=== PATIENT | male | born 1950 | race Caucasian/White ===

== ENCOUNTER 2020-03-06 16:31 | Emergency (ER) | payer MEDICARE, SELFPAY ==
[2020-03-06 17:50] VITALS: BP 142/83; PULSE 89; RESP 18; TEMP 36.6; O2SAT 99; BMI 31.1
[2020-03-06 19:50] VITALS: BP 128/79; PULSE 99; RESP 16; O2SAT 97
--- NOTE | 2020-03-06 19:52 | ED_ITS ---
HPI - Extremity Problem General Chief complaint: Extremity Problem Stated complaint: HIP PAIN Time Seen by Provider: 03/06/20 19:48 Source: patient Mode of arrival: ambulatory History of Present Illness HPI Narrative: 69-year-old male with a past medical history of diabetes, hyperlipidemia, hypertension, skin cancer, presenting to the ED complaining of acute on chronic left foot pain x2 days. Admits to symptoms x years, however worsening over the past couple days, denies recent injury/trauma or falls. Takes gabapentin 3 times daily with minimal relief. Describes pain as twitching/spikes that radiate down foot. Denies fever, chills, numbness/tingling, weakness Complaint: extremity pain Related Data Previous Rx's Medication Instructions Recorded cyclobenzaprine 5 mg PO Q8H PRN 5 Days #14 tab 03/06/20 tramadol 50 mg PO Q6H PRN 3 Days #9 tab 03/06/20 Allergies Allergy/AdvReac Type Severity Reaction Status Date / Time No Known Allergies Allergy Unverified 12/10/19 15:58 [No Known Allergies*] Review of Systems Review of Systems: Constitutional: No Weight loss, No Fever, No Chills Cardiovascular: No Chest Pain, No SOB Respiratory: No Cough Gastrointestinal: No Nausea, No Vomiting,No Abdominal pain Genitourinary:, No Dysuria, + Urinary Frequency, No Urgency, No Flank Pain Musculoskeletal: + joint pain, No Myalgias, +chronic LE swelling Skin: No Skin Lesions, No rash Neuro: No Weakness, No Numbness, + Paresthesias Yes all other systems are reviewed and are negative [facility] Past Medical History Attestation statement: The following information was validated with the patient. Medical History (Updated 03/06/20 @ 20:07 by TEE Burris) Diabetes HLD (hyperlipidemia) HTN (hypertension) Skin cancer Social History Social History Smoking Status: Never smoker Smoked in Last 30 Days: No Use of substances other than those prescribed or required for medical reasons: No Advance Directives: No Advance Directives Information Provided: Yes Physical Exam Vital Signs: Vital Signs: Last Vital Signs Temp 98 F 03/06/20 17:50 Pulse 99 03/06/20 19:50 Resp 16 03/06/20 19:50 BP 128/79 03/06/20 19:50 Pulse Ox 97 03/06/20 19:50 Body Mass Index 31.1 Const: General: cooperative Orientation/consciousness: patient oriented x3 Limitations: no limitations HENMT: Head: Yes normal to inspection Ears: hearing grossly normal bilaterally General nose exam: Normal external nose present Face and sinus: Yes normal facial exam Eyes: General: appearance normal, both eyes and all related structures EOM: EOMs intact bilaterally Neck: Neck: Yes normal visual inspection and Yes no meningeal signs Resp: Effort & Inspection: normal respiratory effort Cardio: Rate: regular rate Peripheral pulses: dorsalis pedis present GI: Inspection: Yes normal to inspection Palpation (GI): Soft to palpation, nontender, no guarding and not rigid Skin: Rashes: no rashes Wounds: no wounds Neuro: General: patient oriented x3 and no meningeal signs Gait exam (Neuro): Normal gait present Extrem: Other: + bilateral LE edema (chronic per patient). Left foot/ankle without deformity, nontender to palpation, no crepitus, NV intact Course Course Course Narrative: * POC 289 MDM - Extremity (Nontraumatic) MDM Narrative Medical decision making narrative: On exam VS, NAD/well-appearing. Likely acute on chronic neuropathy/paresthesias. Low concern for acute fracture/dislocation. Will check POC Discharge Plan Discharge Clinical Impression: Foot pain, left Patient Disposition: Home, Self-Care Instructions: Paresthesia (ED) Additional Instructions: Tramadol as an opiate pain medication, take only when pain is severe for the next 3 days. Flexeril as a muscle relaxer, take at night as it makes you drowsy, do not drive, drink alcohol, or operate machinery while taking it. Follow up with her primary care doctor. If symptoms persist or worsen, fever, or unable to walk, have weakness, or numbness return to the ED Tramadol jeremías analg?sico opi?manager account management, t?gutierrez solo cuando el dolor sea intenso francine los pr?ximos 3 d?as. Flexeril jeremías relajante muscular, t?gutierrez por la noche ya que le produce somnolencia, no conduzca, no jacqueline alcohol ni utilice maquinaria mientras lo vishal. Ray un seguimiento con wright m?dico de atenci?n primaria. Si los s?ntomas persisten o empeoran, tiene fiebre o no puede caminar, tiene debilidad o entumecimiento, regrese al servicio de urgencias Prescriptions: New tramadol 50 mg tablet 50 mg PO Q6H PRN (Reason: pain) 3 Days Qty: 9 RF: 0 cyclobenzaprine 5 mg tablet 5 mg PO Q8H PRN (Reason: pain (scale score 7-10)) 5 Days Qty: 14 RF: 0 Referrals: Physician,Unknown [Primary Care Provider] - 2 days (Your primary care doctor) Print Language: Kazakh
[2020-03-06 20:25] LABS: Glucose, Whole Blood 289 mg/dL (60-115)
== END 2020-03-06 21:16 | disposition home or self-care (01) ==
PROVIDERS: Emergency Provider Internal Medicine
DX: M79.672 Pain in left foot (principal); I10 Essential (primary) hypertension; E11.9 Type 2 diabetes mellitus without complications; Z79.899 Other long term (current) drug therapy
CPT/HCPCS: 82947; 99283; 99284

== ENCOUNTER 2020-04-12 06:10 | Emergency (ER) | payer MEDICARE, SELFPAY ==
--- NOTE | 2020-04-12 07:00 | ED.EXTPRO ---
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 Patient presents with foot pain from neuropathy. Both feet, no redness, increasing swelling to his feet over months Complaint: extremity pain Onset (ago): year(s) Pain Consistency: intermittent Location: left and right Quality: burning Related Data Previous Rx's Medication Instructions Recorded cyclobenzaprine 5 mg PO Q8H PRN 5 Days #14 tab 03/06/20 tramadol 50 mg PO Q6H PRN 3 Days #9 tab 03/06/20 Allergies Allergy/AdvReac Type Severity Reaction Status Date / Time No Known Allergies Allergy Unverified 12/10/19 15:58 [No Known Allergies*] Review of Systems Constitutional: Constitutional: Reports no additional constitutional complaints Eyes: Eyes: Reports no additional eye complaints ENT: Denies dizziness Cardiovascular: Cardiovascular: Reports no additional cardiovascular complaints Respiratory: Respiratory: Reports as per HPI Gastrointestinal: Gastrointestinal: Reports no additional gastrointestinal complaints Musculoskeletal: Musculoskeletal: Reports no additional musculoskeletal complaints Integumentary/Breasts: Skin/Breast: Denies rash Neurologic: Reports system reviewed and no additional complaints, except as documented, Denies dizziness and Denies Sensory deficit (Neuro) Psychiatric: Psychiatric: Denies anxiety [facility], [facility] Past Medical History Medical History Diabetes HLD (hyperlipidemia) HTN (hypertension) Skin cancer Social History Social History Smoking Status: Never smoker Advance Directives: No Advance Directives Information Provided: No Physical Exam Vital Signs: Vital Signs: Last Vital Signs Temp 98 F 04/12/20 07:29 Pulse 92 04/12/20 07:29 Resp 16 04/12/20 07:29 BP 111/70 04/12/20 07:29 Pulse Ox 97 04/12/20 07:29 Body Mass Index 33.8 Const: General: healthy appearing Nutritional Appearance: average body habitus Orientation/consciousness: oriented to person and patient oriented x3 Limitations: no limitations HENMT: Other: very hard of hearing Head: Yes normal to inspection Ears: external ears normal General nose exam: Normal external nose present Mouth: Normal oral and palatal mucosa present and oropharynx normal Throat: Yes posterior oropharynx normal Eyes: General: appearance normal, both eyes and all related structures Neck: Other: supple Neck: Yes normal visual inspection Chest: Chest palpation & inspection: normal inspection of the chest Resp: Auscultation: clear to auscultation bilaterally Cardio: Jugular venous distension: no JVD Rate: regular rate Rhythm: regular rhythm Heart sounds: S1 normal heart sound present and S2 normal heart sound present GI: Inspection: Yes normal to inspection Palpation (GI): Soft to palpation, nontender and No hepatosplenomegaly present Auscultation: normal bowel sounds : General: Yes no CVA tenderness Back/Spine/Pelvis: Back: no CVA tenderness Skin: General skin exam: no rashes or lesions noted Neuro: General: oriented to person and patient oriented x3 Cranial nerves: Yes CN's II-XII intact bilaterally Motor exam (neuro): 5/5 motor strength present throughout Sensory Exam: No Sensory deficit (Neuro) Extrem: Other: no erythema, bilateral edema 1+ and good DP pulses General: Yes normal to inspection Psych: Appearance: grossly normal Course Course Course Narrative: glucose is not high will dc home with follow up, will treat for neuropathy MDM - Extremity (Nontraumatic) MDM Narrative Medical decision making narrative: neuropathy, gout, vascular insufficiency all were considered. Patient with good pulses, no evidence of gout or cellulitis. Most likely neuropathy Lab Data Labs: Lab Results 04/12/20 Range/Units 08:33 POC Glucose 101 (60-115) mg/dL Discharge Plan Discharge Clinical Impression: Neuropathy Patient Disposition: Home, Self-Care Instructions: Diabetic Peripheral Neuropathy (ED) Prescriptions: No Action tramadol 50 mg tablet 50 mg PO Q6H PRN (Reason: pain) 3 Days Qty: 9 RF: 0 cyclobenzaprine 5 mg tablet 5 mg PO Q8H PRN (Reason: pain (scale score 7-10)) 5 Days Qty: 14 RF: 0 Referrals: Physician,Unknown [Primary Care Provider] - 2 days
[2020-04-12 07:29] VITALS: BP 111/70; PULSE 92; RESP 16; TEMP 36.6; O2SAT 97; BMI 33.8
[2020-04-12] MEDS: Gabapentin 300 MG CAPSULE PO (08:08)
[2020-04-12 08:37] LABS: Glucose, Whole Blood 101 mg/dL (60-115)
== END 2020-04-12 09:25 | disposition home or self-care (01) ==
PROVIDERS: Emergency Provider Emergency Medicine
DX: G62.9 Polyneuropathy, unspecified (principal); E11.9 Type 2 diabetes mellitus without complications; I10 Essential (primary) hypertension; Z85.828 Personal history of other malignant neoplasm of skin
CPT/HCPCS: 82947; 99282

== ENCOUNTER 2021-03-25 19:39 | Emergency (ER) | payer MEDICARE, SELFPAY ==
--- NOTE | ~2021-03-25 | XR_ITS ---
EXAMINATION: XR CHEST CLINICAL INFORMATION: Congestion COMPARISON: 06/06/2018 TECHNIQUE: Frontal view of the chest was obtained. FINDINGS: Low lung volumes. No consolidation, pneumothorax, or pleural effusion. Mild dependent atelectasis. Cardiac and mediastinal contours are normal. 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 XR/XR chest 1V IMPRESSION: Low lung volumes with mild dependent atelectasis. No acute pulmonary findings
[2021-03-25 20:29] LABS: COVID-19 Test Negative (Negative)
[2021-03-25 21:01] VITALS: BP 169/92; PULSE 113; RESP 16; TEMP 37; O2SAT 96; BMI 32.9
--- NOTE | 2021-03-25 21:27 | ED.URI ---
HPI - URI/Sore Throat General Chief Complaint: Upper Respiratory Symptoms Stated Complaint: fever,congestion,cough Time Seen by Provider: 03/25/21 21:27 Source: patient Mode of arrival: ambulatory Limitations: no limitations History of Present Illness HPI Narrative: Patient coughing for last 2 weeks with mucoid phlegm patient already been vaccinated against COVID no fever no chills no chest pain Related Data Previous Rx's Medication Instructions Recorded cyclobenzaprine 5 mg tablet 5 mg PO Q8H PRN 5 Days #14 tab 03/06/20 tramadol 50 mg tablet 50 mg PO Q6H PRN 3 Days #9 tab 03/06/20 amoxicillin 875 mg-potassium 1 tab PO BID #20 tab 03/25/21 clavulanate 125 mg tablet (Augmentin) benzonatate 200 mg capsule 200 mg PO TID PRN #30 cap 03/25/21 doxycycline hyclate 100 mg tablet 100 mg PO BID #20 tab 03/25/21 Allergies Allergy/AdvReac Type Severity Reaction Status Date / Time No Known Allergies Allergy Unverified 12/10/19 15:58 [No Known Allergies*] Review of Systems Review of Systems: Yes all other systems are reviewed and are negative [facility] Past Medical History Medical History Diabetes HLD (hyperlipidemia) HTN (hypertension) Skin cancer Social History Social History Advance Directives: No Physical Exam Vital Signs: Vital Signs: Last Vital Signs Temp 98.6 F 03/25/21 21:01 Pulse 113 H 03/25/21 21:01 Resp 16 03/25/21 21:01 BP 169/92 H 03/25/21 21:01 Pulse Ox 96 03/25/21 21:01 BMI result Body Mass Index 32.9 Appearance: Alert. Oriented X3. No acute distress. ENT: Pharynx normal. Oral Mucosa moist Neck: Normal inspection. Neck supple. CVS: Normal heart rate and rhythm. Pulses normal. Respiratory: No respiratory distress. Equal air entry bilateral, no wheezing/rales/rhonchi Abdomen: Soft and nontender. Bowel sounds are present, Skin: Skin warm and dry. Normal skin color. Normal skin turgor. Extremities: No lower extremity edema. No calf tenderness Neuro: Oriented X 3. MDM - URI/Sore Throat MDM Narrative Medical decision making narrative: Patient's bronchitis chest x-ray negative for any acute infiltrate discharge patient home on Augmentin and doxycycline Lab Data Attestation: I reviewed the patient's lab results. Labs: Lab Results 03/25/21 Range/Units 20:01 COVID-19 ([facility]OR[facility]ZA) Negative (Negative) COVID-19 Clin Com See Note Discharge Plan Discharge Clinical Impression: Bronchitis Patient Disposition: Home, Self-Care Instructions: Acute Bronchitis (ED) Additional Instructions: Take medicine as advised Follow with PCP if not better [place] los medicamentos seg?n lo recomendado Siga con wright PCP si no mejora Prescriptions: New benzonatate 200 mg capsule 200 mg PO TID PRN (Reason: cough) Qty: 30 RF: 0 doxycycline hyclate 100 mg tablet 100 mg PO BID Qty: 20 RF: 0 amoxicillin-pot clavulanate [Augmentin] 875-125 mg tablet 1 tab PO BID Qty: 20 RF: 0 No Action tramadol 50 mg tablet 50 mg PO Q6H PRN (Reason: pain) 3 Days Qty: 9 RF: 0 cyclobenzaprine 5 mg tablet 5 mg PO Q8H PRN (Reason: pain (scale score 7-10)) 5 Days Qty: 14 RF: 0 Print Language: Sri Lankan
[2021-03-25] MEDS: Benzonatate 100 MG CAPSULE 200 MG PO (22:07)
[2021-03-25] MEDS: Amoxicillin/Potassium Clav 875 MG TABLET PO (22:07)
== END 2021-03-25 22:10 | disposition home or self-care (01) ==
PROVIDERS: Emergency Provider Internal Medicine; PCP Internal Medicine
DX: J40 Bronchitis, not specified as acute or chronic (principal); R05.9 Cough, unspecified; R50.9 Fever, unspecified; Z20.822 Contact with and (suspected) exposure to COVID-19; Z79.899 Other long term (current) drug therapy
CPT/HCPCS: 36415; 71045; 87635; 99283

== ENCOUNTER 2022-02-18 18:12 | Emergency (ER) | payer MEDICARE, SELFPAY ==
--- NOTE | 2022-02-18 19:05 | ED_ITS ---
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 Patient states that he has been on augmentin for the last week and the sinus infection hasn't gotten better. Patient denies any dizziness, lightheadedness, abdominal pain, nausea, vomiting, fever, chills, blurry vision, double vision, loss of vision, chest pain, difficulty breathing, shortness of breath, back pain, night sweats, pain with urination, increased urinary frequency, increased urinary urgency, blood in his urine or stool, syncope or a near syncopal episode, recent trauma or falls, bowel incontinence, bladder incontinence, bowel retention, bladder retention, or any other complaints at this time. Onset (ago): week(s) (1) Location: face Radiation: non-radiation Severity: mild Severity scale (1-10): 3 Quality: dull Pain Consistency: constant Relieving factors: none Exacerbating factors: none Associated symptoms: denies other symptoms Treatments prior to arrival: none Related Data Previous Rx's Medication Instructions Recorded cyclobenzaprine 5 mg tablet 5 mg PO Q8H PRN pain (scale score 03/06/20 7-10) 5 days #14 tabs tramadol 50 mg tablet 50 mg PO Q6H PRN pain 3 days #9 03/06/20 tabs amoxicillin 875 mg-potassium 1 tab PO BID #20 tabs 03/25/21 clavulanate 125 mg tablet (Augmentin) benzonatate 200 mg capsule 200 mg PO TID PRN cough #30 caps 03/25/21 doxycycline hyclate 100 mg tablet 100 mg PO BID #20 tabs 03/25/21 acetaminophen 325 mg tablet 650 mg PO Q6H PRN fever #30 tabs 02/18/22 (Tylenol) doxycycline hyclate 100 mg tablet 100 mg PO BID 7 days #14 tabs 02/18/22 Allergies Allergy/AdvReac Type Severity Reaction Status Date / Time No Known Allergies Allergy Unverified 09/17/20 15:58 [No Known Allergies*] Review of Systems Constitutional: Constitutional: Reports no additional constitutional complaints, Denies chills, Denies fever(s) and Denies night sweats Eyes: Eyes: Reports no additional eye complaints, Denies blurry vision, Denies change in vision, Denies diplopia, Denies eye discharge, Denies loss of vision and Denies eye pain ENT: Denies dizziness and Reports sinus pressure Cardiovascular: Cardiovascular: Reports no additional cardiovascular complaints, Denies chest pain, Denies lightheadedness, Denies Loss of Consciousness and Denies dyspnea Respiratory: Respiratory: Reports no additional respiratory complaints and Denies dyspnea Gastrointestinal: Gastrointestinal: Reports no additional gastrointestinal complaints, Denies abdominal pain, Denies melena, Denies hematochezia, Denies change in bowel habits and Denies change in stool character Genitourinary: Genitourinary: Reports no additional male genitourinary complaints, Denies hematuria, Denies oliguria, Denies difficulty urinating, Denies dysuria, Denies urinary frequency, Denies urinary hesitancy, Denies urinary incontinence and Denies urinary urgency Musculoskeletal: Musculoskeletal: Reports no additional musculoskeletal complaints, Denies numbness and Denies tingling Neurologic: Denies dizziness, Denies loss of vision, Denies numbness and Denies tingling Psychiatric: Psychiatric: Reports no additional psychiatric complaints Endocrine: Endocrine: Reports no additional endocrine complaints Hematologic/Lymphatic: Hematologic/Lymphatic: Reports no additional hematologic/lymphatic complaints Allergic/Immunologic: Allergic/Immunologic: Reports no additional allergic/immunologic complaints PMFSH Past Medical History Attestation statement: The following information was validated with the patient. Source: old records reviewed Medical History Diabetes HLD (hyperlipidemia) HTN (hypertension) Skin cancer Physical Exam ED Vital Signs: Vital Signs - 24 hr 02/18/22 19:06 Temperature 98.2 F Pulse Rate 107 H Respiratory Rate 18 Blood Pressure 140/80 H Pulse Oximetry 96 Oxygen Delivery Method Room Air BMI result Body Mass Index 32.4 Const General: cooperative, no acute distress, alert and awake Nutritional Appearance: well nourished Orientation/consciousness: patient oriented x3 Limitations: no limitations HENMT Head: Yes normal to inspection and Yes atraumatic Ears: hearing grossly normal bilaterally and external ears normal General nose exam: Normal external nose present, no nasal discharge noted and no epistaxis Face and sinus: Yes normal facial exam, No abrasion and No laceration Mouth: Normal oral and palatal mucosa present, no drooling and no muffled voice Eyes General: appearance normal, both eyes and all related structures Periorbital: periorbital findings normal Eyelids: Yes eyelids normal Conjunctivae: conjunctivae normal Pupils: Equal, round and reactive pupils present EOM: EOMs intact bilaterally Neck Neck: Yes normal visual inspection, Yes full ROM and Yes no lymphadenopathy Chest Chest palpation & inspection: normal inspection of the chest Resp Effort & Inspection: normal respiratory effort and able to speak in complete sentences Auscultation: clear to auscultation bilaterally Cardio Rate: regular rate Rhythm: regular rhythm GI Inspection: Yes normal to inspection Neuro General: patient oriented x3 and moves all extremities Cranial nerves: Yes Equal, round and reactive pupils present Cognition (Neuro): normal cognition Motor exam (neuro): 5/5 motor strength present throughout Sensory Exam: Normal double simultaneous stimulation for sensation Coordination: [id number] test normal Extrem General: Yes normal to inspection, Yes full ROM and Yes capillary refill normal Psych Appearance: grossly normal Mental Status: mental status grossly normal Affect: normal affect Attitude: cooperative Thought process: Normal thought process present Thought content: Normal thought content present Insight: Good insight present (Psych) Medical Decision Making [facility] Narrative Medical decision making narrative: Patient is a 71 year old assigned male at with a history of a recent sinus infection presenting to the emergency department today with worsening sinus pain. Patient's physical exam was unremarkable. I explained my physical exam findings to the patient and the patient's daughter. I answered all questions asked by the patient and the patient's daughter. I stressed the importance of the patient taking his medication as prescribed. I stressed the importance of the patient following up with his primary care provider and an ENT specialist. I stressed the importance of the patient returning to the emergency department immediately if his symptoms were to worsen or if he were to develop any dizziness, shortness of breath, difficulty breathing, chest pain, blurry vision, loss of vision, nausea, vomiting, abdominal pain, fever, chills, back pain, or any other complaints. Patient and the patient's daughter verbalized agreement and understanding with this treatment plan and discharge. Medical Records Medical records reviewed: Yes I reviewed the patient's medical records. Discharge Plan Discharge Clinical Impression: Sinusitis Patient Disposition: Home, Self-Care Instructions: Sinusitis (ED) Additional Instructions: Follow up with your primary care provider and an ENT specialist. Return to the emergency department immediately if your symptoms worsen or if you develop any dizziness, shortness of breath, difficulty breathing, chest pain, blurry vision, loss of vision, nausea, vomiting, abdominal pain, fever, chills, back pain, or any other complaints. Suma un seguimiento con wright proveedor de atenci?n primaria y un otorrinolaring?logo. Regrese al departamento de emergencias de inmediato si juvenal s?ntomas empeoran o si presenta mareos, falta de aire, dificultad para respirar, dolor de pecho, visi?n borrosa, p?rdida de la visi?n, n?useas, v?mitos, dolor abdominal, fiebre, escalofr?os, dolor de espalda o cualquier otras quejas. Prescriptions: New doxycycline hyclate 100 mg tablet 100 mg PO BID 7 Days Qty: 14 0RF acetaminophen [Tylenol] 325 mg tablet 650 mg PO Q6H PRN (Reason: fever) Qty: 30 0RF No Action tramadol 50 mg tablet 50 mg PO Q6H PRN (Reason: pain) 3 Days Qty: 9 0RF cyclobenzaprine 5 mg tablet 5 mg PO Q8H PRN (Reason: pain (scale score 7-10)) 5 Days Qty: 14 0RF benzonatate 200 mg capsule 200 mg PO TID PRN (Reason: cough) Qty: 30 0RF doxycycline hyclate 100 mg tablet 100 mg PO BID Qty: 20 0RF amoxicillin-pot clavulanate [Augmentin] 875-125 mg tablet 1 tab PO BID Qty: 20 0RF Referrals: [facility] [Provider Group] (Call to establish and follow up with a primary care provider. If you already have a primary care provider, please follow up with them. ) [facility] [Provider Group] (Call to establish and follow up with a primary care provider. If you already have a primary care provider, please follow up with them. ) [facility] [Provider Group] (Call to establish and follow up with a primary care provider. If you already have a primary care provider, please follow up with them. Llame para establecer y hacer un seguimiento con un proveedor de atenci?n primaria. Si ya tiene un proveedor de atenci?n primaria, suma un seguimiento con ?l. Llame para establecer y hacer un seguimiento con un proveedor de atenci?n primaria. Si ya tiene un proveedor de atenci?n primaria, suma un seguimiento con ?l. Llame para establecer y hacer un seguimiento con un proveedor de atenci?n primaria. Si ya tiene un proveedor de atenci?n primaria, suma un seguimiento con ?l.) Venu Felipe [Physician] - (Call to establish and follow up with an ENT specialist. Llame para establecer y daniel seguimiento con un otorrinolaring?logo.) Print Language: Maltese
[2022-02-18 19:06] VITALS: BP 140/80; PULSE 107; RESP 18; TEMP 36.8; O2SAT 96; BMI 32.4
== END 2022-02-18 19:40 | disposition home or self-care (01) ==
LOC: HO.ED 19:27
PROVIDERS: Emergency Provider Internal Medicine; PCP Internal Medicine
DX: J32.9 Chronic sinusitis, unspecified (principal); Z79.899 Other long term (current) drug therapy
CPT/HCPCS: 99282

== ENCOUNTER 2022-11-20 10:27 | Emergency (ER) | payer MEDICARE, SELFPAY ==
[2022-11-20 10:33] VITALS: BP 148/94; PULSE 84; RESP 16; TEMP 36.9; O2SAT 96
--- NOTE | 2022-11-20 12:49 | ED.GENADULT ---
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 Patient reports that over the last week and a half he has had increased pain in his nose with nasal congestion. He states that he gets a sinus infection every year around this time. Patient denies any fevers, chills, changes in vision, ear pain, sore throat, cough, chest pain, shortness of breath, palpitations, abdominal pain, nausea, vomiting or diarrhea. Denies taking any medications at home to treat his current symptoms. He states that he took his blood sugar this morning and it was within his normal range. No other complaints or concerns at this time. MD complaint: Sinus pain Onset (ago): week(s) Location: head Severity: moderate Quality: aching Pain Consistency: constant Relieving factors: none Exacerbating factors: none Associated symptoms: denies other symptoms Treatments prior to arrival: none Related Data Previous Rx's Medication Instructions Recorded cyclobenzaprine 5 mg tablet 5 mg PO Q8H PRN pain (scale score 03/06/20 7-10) 5 days #14 tabs tramadol 50 mg tablet 50 mg PO Q6H PRN pain 3 days #9 03/06/20 tabs amoxicillin 875 mg-potassium 1 tab PO BID #20 tabs 03/25/21 clavulanate 125 mg tablet (Augmentin) benzonatate 200 mg capsule 200 mg PO TID PRN cough #30 caps 03/25/21 doxycycline hyclate 100 mg tablet 100 mg PO BID #20 tabs 03/25/21 acetaminophen 325 mg tablet 650 mg PO Q6H PRN fever #30 tabs 02/18/22 (Tylenol) doxycycline hyclate 100 mg tablet 100 mg PO BID 7 days #14 tabs 02/18/22 amoxicillin 875 mg-potassium 1 tab PO BID 10 days #20 tabs 11/20/22 clavulanate 125 mg tablet Allergies Allergy/AdvReac Type Severity Reaction Status Date / Time No Known Allergies Allergy Unverified 12/10/19 15:58 [No Known Allergies*] Review of Systems Review of Systems: Yes all other systems are reviewed and are negative Constitutional: Constitutional: Reports as per [facility] Past Medical History Medical History Diabetes HLD (hyperlipidemia) HTN (hypertension) Skin cancer Social History Social History Advance Directives: No Advance Directives Information Provided: Yes Physical Exam ED Vital Signs: Vital Signs - 24 hr 11/20/22 10:33 Temperature 98.4 F Pulse Rate 84 Respiratory Rate 16 Blood Pressure 148/94 H Pulse Oximetry 96 Oxygen Delivery Method Room Air BMI result Body Mass Index 30.0 Const General: cooperative, comfortable and no acute distress Orientation/consciousness: patient oriented x3 Limitations: no limitations HENMT Other: Nasal turbinates are erythematous and edematous. Tender to palpation. No frontal, maxillary or ethmoid sinus tenderness Head: Yes normal to inspection, Yes normocephalic and Yes atraumatic Ears: hearing grossly normal bilaterally General nose exam: Normal external nose present Face and sinus: Yes normal facial exam Mouth: Normal oral and palatal mucosa present, oropharynx normal and moist mucous membranes Throat: Yes posterior oropharynx normal Eyes General: appearance normal, both eyes and all related structures Eyelids: Yes eyelids normal Conjunctivae: conjunctivae normal Sclerae: sclerae normal Pupils: Equal, round and reactive pupils present EOM: EOMs intact bilaterally Neck Neck: Yes normal visual inspection, Yes full ROM and Yes no lymphadenopathy Lymphatic: no lymphadenopathy noted Chest Chest palpation & inspection: normal inspection of the chest Resp Effort & Inspection: normal respiratory effort and able to speak in complete sentences Auscultation: clear to auscultation bilaterally, no crackles, no rales, no rhonchi and no wheezes Cardio Rate: regular rate Rhythm: regular rhythm Heart sounds: S1 normal heart sound present and S2 normal heart sound present GI Inspection: Yes normal to inspection Skin General skin exam: no rashes or lesions noted Trauma: no lacerations or abrasions Wounds: no wounds Neuro General: patient oriented x3 and moves all extremities Cranial nerves: Yes Equal, round and reactive pupils present Extrem General: Yes normal to inspection Right upper extremity: normal to inspection Left upper extremity: normal to inspection Right lower extremity: normal to inspection Left lower extremity: normal to inspection Medical Decision Making Medical Decision Making MDM Narrative: 71-year-old male, with past medical history of diabetes, presenting to the emergency department for evaluation of nose pain x1 half weeks. On arrival, patient mildly hypertensive at 148/94, however need patient is asymptomatic, denies any headaches, blurred vision, dizziness chest tightness shortness of breath. Differential diagnoses include sinusitis, URI, surgical rhinitis. ropharynx is non erythematous, nonedematous, airway is patent. Lungs are clear to auscultation. Given erythematous and edematous nasal turbinates with tenderness, will treat as a sinus infection. OAdvised to take the entire course even if feeling better. Educated the importance of returning if any new or worsening symptoms occur. Patient understands and agrees with plan. Patient stable for discharge. Differential Diagnosis Differential Diagnoses: The differential diagnosis associated with the presentation includes See above Discharge Plan Discharge Clinical Impression: Sinusitis Patient Disposition: Home, Self-Care Instructions: Sinusitis (ED) Additional Instructions: You likely have a sinus infection, it is unclear whether not this is a virus, bacterial or seasonal allergies. Please take prescribed antibiotic as directed. Finish the entire course even if your feeling better. Drink plenty of fluids get plenty of rest. If any new or worsening symptoms occur, including but not limited to chest pain, shortness of breath, fevers, chills, please return for re-evaluation. Follow-up with your primary care physician regarding visit. Es probable que tenga tanner infecci?n de los senos nasales, sterling no est? farrah si se trata de un virus, tanner bacteria o tanner alergia estacional. [place] el antibi?luis recetado seg?n las indicaciones. Termina todo el curso incluso si te sientes mejor. Jennifer muchos l?quidos y descanse mucho. Si se presenta alg?n s?ntoma nuevo o que empeora, incluidos, entre otros, dolor en el pecho, dificultad para respirar, fiebre, escalofr?os, regrese para tanner nueva evaluaci?n. Ray un seguimiento con wright m?dico de atenci?n primaria con respecto a la visita. Prescriptions: New amoxicillin-pot clavulanate 875-125 mg tablet 1 tab PO BID 10 Days Qty: 20 0RF No Action tramadol 50 mg tablet 50 mg PO Q6H PRN (Reason: pain) 3 Days Qty: 9 0RF cyclobenzaprine 5 mg tablet 5 mg PO Q8H PRN (Reason: pain (scale score 7-10)) 5 Days Qty: 14 0RF benzonatate 200 mg capsule 200 mg PO TID PRN (Reason: cough) Qty: 30 0RF doxycycline hyclate 100 mg tablet 100 mg PO BID Qty: 20 0RF amoxicillin-pot clavulanate [Augmentin] 875-125 mg tablet 1 tab PO BID Qty: 20 0RF doxycycline hyclate 100 mg tablet 100 mg PO BID 7 Days Qty: 14 0RF acetaminophen [Tylenol] 325 mg tablet 650 mg PO Q6H PRN (Reason: fever) Qty: 30 0RF Print Language: [place]ian
[2022-11-20 13:01] VITALS: BP 120/75; PULSE 91; RESP 18; TEMP 37.2; O2SAT 100
== END 2022-11-20 13:05 | disposition home or self-care (01) ==
PROVIDERS: Emergency Provider Student in an Organized Health Care Education/Training Program; PCP Internal Medicine
DX: J32.9 Chronic sinusitis, unspecified (principal); R22.1 Localized swelling, mass and lump, neck; Z79.899 Other long term (current) drug therapy
CPT/HCPCS: 99283; 99284

== ENCOUNTER 2022-12-18 13:53 | Outpatient (REF) | payer MEDICARE, SELFPAY ==
[2022-12-18 14:55] LABS: MANUAL DIFF FLAG NO
[2022-12-18 15:09] LABS: Basophils Percent Auto 0.5 % (0-2); Eosinophils Absolute Auto 0.2 X10*3/uL (0.0-0.4); Eosinophils Percent Auto 2.5 % (0-4); Hematocrit 41.4 % (42.0-52.0); Hemoglobin 12.9 g/dl (14.0-18.0); Imm Gran Abs Auto 0.02 X10*3/uL (0.00-0.03); Imm Gran Pct Auto 0.3 % (0.0-0.4); Lymphocytes Absolute Auto 1.7 X10*3/uL (1.2-4.9); Lymphocytes Percent Auto 27.6 % (20-40); Mean Corpuscular HGB Conc 31.2 g/dl (31.0-36.0); Mean Corpuscular Hemoglobin 26.8 pg (27.0-33.0); Mean Corpuscular Volume 86.1 fL (80.0-98.0); Mean Platelet Volume 9.8 fL (9.4-12.4); Monocytes Absolute Auto 0.6 X10*3/uL (0.1-1.2); Monocytes Percent Auto 10.4 % (2-11); Neutrophils Absolute Auto 3.6 x10*3/uL (2.0-8.3); Neutrophils Percent Auto 58.7 % (45-73); Platelet Count 280 X10*3/uL (160-400); Red Blood Count 4.81 X10*6/uL (4.60-5.80); White Blood Count 6.1 X10*3/uL (4.8-10.8)
== END 2022-12-18 13:54 | disposition home or self-care (01) ==
LOC: HO.CHCLDS 13:53
PROVIDERS: Visit Provider Internal Medicine
DX: Z00.00 Encounter for general adult medical examination without abnormal findings (principal); E11.65 Type 2 diabetes mellitus with hyperglycemia; E78.5 Hyperlipidemia, unspecified
CPT/HCPCS: 36415; 85025

== ENCOUNTER 2023-01-07 11:59 | Emergency (ER) | payer MEDICARE, SELFPAY ==
[2023-01-07] VITALS (8 sets, daily range): BP systolic 116–153; BP diastolic 70–87; PULSE 97–114; RESP 16–18; TEMP 36–36.8; O2SAT 96–99; BMI 29.9
--- NOTE | ~2023-01-07 | CT_ITS ---
EXAMINATION: CT HEAD WITHOUT CONTRAST CT CERVICAL SPINE WITHOUT CONTRAST CLINICAL INFORMATION: Dizziness and fall COMPARISON: None TECHNIQUE: Contiguous axial imaging was performed from the skull base to vertex without intravenous administration of contrast. Contiguous axial imaging was performed from the upper chest through the skull base without intravenous administration of contrast. Coronal and sagittal reformats were obtained at the acquisition workstation. This CT examination was performed using dose optimization techniques as appropriate, variously including the following: *Automated exposure control. *Adjustment of mA and/or kV according to patient size (this includes techniques or standardized protocols for targeted exams where dose is matched to indication/reason for exam; i.e. extremities or head). *Use of iterative reconstruction technique. DLP: 1008 mGy-cm FINDINGS: Head: There is no evidence of acute intracranial hemorrhage or edematous territorial infarction. Lam-white matter differentiation is preserved. There is no abnormal attenuation within the brain parenchyma, except of punctate calcifications in the left basal ganglia. The ventricles are normal in morphology and size. No evidence for obstructive hydrocephalus. No abnormal mass effect or midline shift. No extra-axial fluid collections. No acute soft tissue or osseous abnormalities. The mastoid air cells and visualized paranasal sinuses are clear. Cervical Spine: The atlantooccipital and atlantoaxial articulations remain well aligned. Straightening of the normal cervical lordosis and there is fusion of facet joints of C2 and C3 bilaterally. Otherwise, there is anatomic alignment of the vertebral bodies and posterior elements. No evidence of acute fracture or subluxation. The vertebral body heights and disc spaces are maintained. There is no prevertebral soft tissue swelling. The thyroid gland and remaining cervical soft tissues are within normal limits. CT/CT cervical spine wo IV con IMPRESSION: Mild degenerative changes in facet joints of C2 and C3 Unremarkable brain and paranasal sinuses
--- NOTE | 2023-01-07 12:16 | ECG_ITS ---
Test Reason : dizziness Blood Pressure : / mmHG Vent. Rate : 097 BPM Atrial Rate : 097 BPM P-R Int : 158 ms QRS Dur : 082 ms QT Int : 352 ms P-R-T Axes : 053 015 019 degrees QTc Int : 447 ms Normal sinus rhythm Normal ECG When compared with ECG of 20-NOV-2017 08:19, No significant change was found Referred By: Roland Oakley Electronically Signed By:DOREEN VERA MD
--- NOTE | 2023-01-07 12:19 | ED_ITS ---
HPI - General Adult General Chief complaint: Fall Stated complaint: facial swelling Time Seen by Provider: 01/07/23 17:57 Source: patient and RN notes reviewed Mode of arrival: ambulatory Limitations: no limitations History of Present Illness HPI narrative: This is a 72-year-old Chinese-speaking male, with a past medical history of diabetes, presenting to the emergency department for evaluation of intermittent dizziness and facial pain x 2 weeks. patient reports that over the last 2 weeks he has noticed increased dizziness upon positional changes. He states that this morning when he woke up and got out of bed he lost his balance and fell striking his face on the wall. He denies loss of consciousness. he states that he checked his blood glucose level and it was 53 this morning. He states that after he ate his symptoms improved. He denies any headaches, visual changes, chest pain, shortness Of breath, abdominal pain, nausea, vomiting or diarrhea. No other complaints or concerns at this time. MD complaint: facial swelling, dizziness Radiation: non-radiation Relieving factors: none Exacerbating factors: none Associated symptoms: denies other symptoms Treatments prior to arrival: none Related Data Previous Rx's Medication Instructions Recorded cyclobenzaprine 5 mg tablet 5 mg PO Q8H PRN pain (scale score 03/06/20 7-10) 5 days #14 tabs tramadol 50 mg tablet 50 mg PO Q6H PRN pain 3 days #9 03/06/20 tabs amoxicillin 875 mg-potassium 1 tab PO BID #20 tabs 03/25/21 clavulanate 125 mg tablet (Augmentin) benzonatate 200 mg capsule 200 mg PO TID PRN cough #30 caps 03/25/21 doxycycline hyclate 100 mg tablet 100 mg PO BID #20 tabs 03/25/21 acetaminophen 325 mg tablet 650 mg (2 x 325 mg) PO Q6H PRN 02/18/22 (Tylenol) fever #30 tabs doxycycline hyclate 100 mg tablet 100 mg PO BID 7 days #14 tabs 02/18/22 amoxicillin 875 mg-potassium 1 tab PO BID 10 days #20 tabs 11/20/22 clavulanate 125 mg tablet Allergies Allergy/AdvReac Type Severity Reaction Status Date / Time No Known Allergies Allergy Verified 01/07/23 12:13 [No Known Allergies*] Review of Systems 2 Review of Systems: Yes all other systems are reviewed and are negative Constitutional: Constitutional: Reports as per [facility] Past Medical History Medical History Diabetes HLD (hyperlipidemia) HTN (hypertension) Skin cancer Social History Social History Advance Directives: No Advance Directives Information Provided: No Physical Exam ED Vital Signs: Vital Signs - 24 hr 01/07/23 12:13 01/07/23 18:33 01/07/23 18:34 Temperature 96.8 F Pulse Rate 100 108 H 97 Respiratory Rate 16 18 Blood Pressure 146/71 H 147/87 H 152/79 H Pulse Oximetry 99 98 Oxygen Delivery Method Room Air Room Air 01/07/23 18:34 01/07/23 18:46 01/07/23 20:55 Temperature 98.2 F Pulse Rate 103 H 104 H 108 H Respiratory Rate 17 Blood Pressure 121/74 130/70 136/80 Pulse Oximetry 96 Oxygen Delivery Method Room Air 01/07/23 22:35 01/07/23 22:37 01/07/23 22:39 Temperature Pulse Rate 110 H 109 H 114 H Respiratory Rate Blood Pressure 116/77 153/82 H 148/79 H Pulse Oximetry Oxygen Delivery Method BMI result Body Mass Index 29.9 Const General: cooperative, comfortable and no acute distress Orientation/consciousness: patient oriented x3 Limitations: no limitations HENMT Other: right-sided maxillary sinus tenderness to palpation, no overlying erythema, edema or warmth. Head: Yes normal to inspection, Yes normocephalic, Yes atraumatic, Yes Segovia's sign, No hematoma, No laceration, No occipital foramen tenderness, No palpable skull fracture, No scalp lesion, No scalp tenderness and No periorbital ecchymosis Ears: hearing grossly normal bilaterally and TM's normal bilaterally (No hemotypanum ) General nose exam: Normal external nose present Mouth: Normal oral and palatal mucosa present, oropharynx normal and moist mucous membranes Throat: Yes posterior oropharynx normal Eyes General: appearance normal, both eyes and all related structures Eyelids: Yes eyelids normal Conjunctivae: conjunctivae normal Sclerae: sclerae normal Pupils: Equal, round and reactive pupils present EOM: EOMs intact bilaterally Neck Neck: Yes normal visual inspection, Yes full ROM and Yes no lymphadenopathy Lymphatic: no lymphadenopathy noted Chest Chest palpation & inspection: normal inspection of the chest Resp Effort & Inspection: normal respiratory effort and able to speak in complete sentences Auscultation: clear to auscultation bilaterally, no crackles, no rales, no rhonchi and no wheezes Cardio Rate: regular rate Rhythm: regular rhythm Heart sounds: S1 normal heart sound present and S2 normal heart sound present GI Inspection: Yes normal to inspection Skin General skin exam: no rashes or lesions noted Trauma: no lacerations or abrasions Wounds: no wounds Neuro General: patient oriented x3 and moves all extremities Cranial nerves: Yes Equal, round and reactive pupils present Extrem General: Yes normal to inspection Right upper extremity: normal to inspection Left upper extremity: normal to inspection Right lower extremity: normal to inspection Left lower extremity: normal to inspection Course Course Course Narrative: RmE: 72 yold male presents to the ED for dizziness when he got up which caused hit to fall into his door in his room. patient states when he changes posistion of his head (down) feels like things are moving. Glucose this morning was 53. Repeat POC glucose at 11;36 was 136. negative for any neuro deficits. labs and EKG ordered. head CT scan ordered Reevaluation(s) Reevaluation #1: patient feeling much better after receiving IV fluids. Vital signs improved, patient is no longer orthostatic. he is no longer dizzy. patient's symptoms likely due to hypoglycemic episode this morning and orthostatic hypotension. Discussed at length the importance of following up with primary care physician for management of diabetes, advised to call tomorrow as adjustments to his insulin may need to be done. Also educated the importance of slow positional changes. Given ENT referral for chronic maxillary sinus pain. Does not warrant ABX at this time > had abx in october for similar symptoms without relief. No fevers, chills. Patient understands and agrees with plan. patient stable for discharge. Time: 22:59 Medications Administered Discontinued Medications Generic Name Dose Route Start Last Admin Trade Name Freq PRN Reason Stop Dose Admin Sodium Chloride 1,000 mls @ 999 mls/hr 01/07/23 19:00 01/07/23 22:34 Ns IVCONT 01/07/23 20:00 Infused .Q1H1M KARSTEN Infusion Medical Decision Making Medical Decision Making [facility] Narrative: This 72-year-old emergency department for evaluation of dizziness. Patient states that the symptoms started about 2 weeks ago. He has noticed that when he changes position this worsens his symptoms. He states that his dizziness was worse this morning and he states that he took his blood glucose level which was in the 50s this morning. He states that he is feeling much better. He does have right-sided maxillary sinus tenderness on examination. During examination patient reporting dizziness with positional changes during orthostatic vital signs. patient was seen and evaluated in triage, labs were performed. patient has normocytic anemia with an H&H of 12.6/ 39.2%; which is around his baseline, chemistry revealing mild hyperglycemia at 144 respectivelly. troponin negative. Patient not complaining of any chest pain or shortness of breath, repeat a necessary at this time. Head CT and cervical spine CT were performed, head CT negative for intracranial hemorrhage or abnormalities, C-spine CT scan revealing mild degenerative changes and facet joints of C2 and C3. Otherwise unremarkable brain appears nasal sinuses. patient is orthostatic, will medicate with 1 L of IV fluids and re-evaluate. repeat POC glucose ordered Differential Diagnosis Differential Diagnoses: The differential diagnosis associated with the presentation includes ICH, intracranial mass, orthostatic hypotension, electrolyte abnormality, BPPV Admission/Observation Consideration of admission/observation: Escalation of care including admission/observation considered escalation of care including admission observation was considered. Lab Data [facility] Lab Attestation statement: I reviewed the patient's lab results. See MDM above. 01/07/23 12:56 01/07/23 12:56 Labs: Lab Results 01/07/23 01/07/23 Range/Units 12:56 16:01 WBC 5.7 (4.8-10.8) X10*3/uL RBC 4.73 (4.60-5.80) X10*6/uL Hgb 12.6 L (14.0-18.0) g/dl Hct 39.2 L (42.0-52.0) % MCV 82.9 (80.0-98.0) fL MCH 26.6 L (27.0-33.0) pg MCHC 32.1 (31.0-36.0) g/dl RDW 14.9 (11.0-16.0) % Plt Count 247 (160-400) X10*3/uL MPV 8.5 L (9.4-12.4) fL Immature Gran % (Auto) 0.2 (0.0-0.4) % Neut % (Auto) 56.9 (45-73) % Lymph % (Auto) 28.9 (20-40) % [place] % (Auto) 10.0 (2-11) % Eos % (Auto) 3.5 (0-4) % Baso % (Auto) 0.5 (0-2) % Lymph # (Auto) 1.6 (1.2-4.9) X10*3/uL [place] # (Auto) 0.6 (0.1-1.2) X10*3/uL Eos # (Auto) 0.2 (0.0-0.4) X10*3/uL Baso # (Auto) 0.0 (0.0-0.2) X10*3/uL Abs Immat Gran (auto) 0.01 (0.00-0.03) X10*3/uL Absolute Neuts (auto) 3.2 (2.0-8.3) x10*3/uL Absolute Nucleated RBC 0.000 (0.0-0.012) X10*3/uL Nucleated RBC % (auto) 0.0 (0.0-0.2) /100WBC PT 12.4 (11.1-13.3) SEC INR 1.0 (0.9-1.1) APTT 32.9 (26.0-36.4) SEC Sodium 136 (135-145) mmol/L Potassium 4.3 (3.3-5.1) mmol/L Chloride 101 (96-108) mmol/L Carbon Dioxide 22 (22-29) mmol/L Anion Gap 17 (12-20) BUN 11 (9-16) mg/dL Creatinine 0.94 (0.5-1.4) mg/dL Estim Creat Clear Calc 68.4 Estimated GFR > 60 POC Glucose 144 H (60-115) mg/dL Random Glucose 147 H (60-115) mg/dL Calcium 9.7 (8.4-10.2) mg/dL Total Bilirubin 0.6 (0.0-1.0) mg/dL AST 26 (5-37) U/L ALT 36 (0-40) U/L Alkaline Phosphatase 37 L (39-117) U/L Troponin I High Sens < 2.7 (<3.5-35.0) ng/L Total Protein 7.9 (6.5-8.0) g/dL Albumin 4.3 (3.5-5.0) g/dL Radiology Impression Discussion of test interpretation with radiology: I have reviewed the radiologist's reading. Radiologist Impression: EXAMINATION: CT HEAD WITHOUT CONTRAST CT CERVICAL SPINE WITHOUT CONTRAST CLINICAL INFORMATION: Dizziness and fall COMPARISON: None TECHNIQUE: Contiguous axial imaging was performed from the skull base to vertex without intravenous administration of contrast. Contiguous axial imaging was performed from the upper chest through the skull base without intravenous administration of contrast. Coronal and sagittal reformats were obtained at the acquisition workstation. This CT examination was performed using dose optimization techniques as appropriate, variously including the following: *Automated exposure control. *Adjustment of mA and/or kV according to patient size (this includes techniques or standardized protocols for targeted exams where dose is matched to indication/reason for exam; i.e. extremities or head). *Use of iterative reconstruction technique. DLP: 1008 mGy-cm FINDINGS: Head: There is no evidence of acute intracranial hemorrhage or edematous territorial infarction. Lam-white matter differentiation is preserved. There is no abnormal attenuation within the brain parenchyma, except of punctate calcifications in the left basal ganglia. The ventricles are normal in morphology and size. No evidence for obstructive hydrocephalus. No abnormal mass effect or midline shift. No extra-axial fluid collections. No acute soft tissue or osseous abnormalities. The mastoid air cells and visualized paranasal sinuses are clear. Cervical Spine: The atlantooccipital and atlantoaxial articulations remain well aligned. Straightening of the normal cervical lordosis and there is fusion of facet joints of C2 and C3 bilaterally. Otherwise, there is anatomic alignment of the vertebral bodies and posterior elements. No evidence of acute fracture or subluxation. The vertebral body heights and disc spaces are maintained. There is no prevertebral soft tissue swelling. The thyroid gland and remaining cervical soft tissues are within normal limits. CT/CT cervical spine wo IV con IMPRESSION: Mild degenerative changes in facet joints of C2 and C3 Unremarkable brain and paranasal sinuses Dictated By: Mansoor Camacho MD EXAMINATION: CT HEAD WITHOUT CONTRAST CT CERVICAL SPINE WITHOUT CONTRAST CLINICAL INFORMATION: Dizziness and fall COMPARISON: None TECHNIQUE: Contiguous axial imaging was performed from the skull base to vertex without intravenous administration of contrast. Contiguous axial imaging was performed from the upper chest through the skull base without intravenous administration of contrast. Coronal and sagittal reformats were obtained at the acquisition workstation. This CT examination was performed using dose optimization techniques as appropriate, variously including the following: *Automated exposure control. *Adjustment of mA and/or kV according to patient size (this includes techniques or standardized protocols for targeted exams where dose is matched to indication/reason for exam; i.e. extremities or head). *Use of iterative reconstruction technique. DLP: 1008 mGy-cm FINDINGS: Head: There is no evidence of acute intracranial hemorrhage or edematous territorial infarction. Lam-white matter differentiation is preserved. There is no abnormal attenuation within the brain parenchyma, except of punctate calcifications in the left basal ganglia. The ventricles are normal in morphology and size. No evidence for obstructive hydrocephalus. No abnormal mass effect or midline shift. No extra-axial fluid collections. No acute soft tissue or osseous abnormalities. The mastoid air cells and visualized paranasal sinuses are clear. Cervical Spine: The atlantooccipital and atlantoaxial articulations remain well aligned. Straightening of the normal cervical lordosis and there is fusion of facet joints of C2 and C3 bilaterally. Otherwise, there is anatomic alignment of the vertebral bodies and posterior elements. No evidence of acute fracture or subluxation. The vertebral body heights and disc spaces are maintained. There is no prevertebral soft tissue swelling. The thyroid gland and remaining cervical soft tissues are within normal limits. CT/CT head/brain wo IV con IMPRESSION: Mild degenerative changes in facet joints of C2 and C3 Unremarkable brain and paranasal sinuses Dictated By: Mansoor Camacho MD Discharge Plan Discharge Clinical Impression: Dizziness, Orthostatic hypotension Patient Disposition: Home, Self-Care Instructions: Dizziness (ED) Additional Instructions: You presented to the emergency department for dizziness. You had orthostatic hypotension which is a change in blood pressure with positional changes. This improved after receiving IV fluids. This can cause dizziness. The dizziness could also be attributed to your low blood glucose level this morning. Please contact your primary care physician tomorrow as you may need to have your diabetic medication adjusted. Drink plenty of fluids get plenty of rest. Limit exposure to hot, humid environments, arising slowly from lying to sitting position to standing position can also help with your symptoms. Increase your salt and water intake. Your CT head was normal. Your lab work was reassuring. Please drink plenty of fluids get plenty of rest. If any new or worsening symptoms occur including but not limited to worsening dizziness, headaches, chest pain, shortness breast, nausea, vomiting or diarrhea. I am also giving your referral to an ENT specialist. If you continue to have pain in your sinuses, you can follow-up with them. Call to make an appointment. [facility] [address], [address] [place], [place] [phone] Se present? en urgencias por mareos. Tuvo hipotensi?n ortost?angy, que es un cambio en la presi?n arterial con cambios de posici?n. [place] mejor? despu?s de recibir l?quidos por v?a intravenosa. [place] puede causar mareos. Los mareos tambi?n podr?an atribuirse a sharma bajo nivel de glucosa en jareth esta ma?arnold. Comun?quese con sharma m?dico de atenci?n primaria ma?arnold, ya que es posible que necesite ajustar sharma medicamento para la diabetes. Jennifer muchos l?quidos y descanse mucho. Limite la exposici?n a ambientes c?lidos y h?medos, pasando lentamente de estar acostado a sentado y de pie tambi?n puede ayudar con juvenal s?ntomas. Aumente sharma consumo de carli y agua. Sharma tomograf?a computarizada de migdalia era normal. Tu trabajo de laboratorio fue tranquilizador. Jennifer muchos l?quidos y descanse mucho. Si se produce alg?n s?ntoma nuevo o que empeora, incluidos, entre otros, empeoramiento de los mareos, corey de migdalia, dolor en el pecho, falta de pecho, n?useas, v?mitos o diarrea. Tambi?n le remito a un otorrinolaring?logo. Si contin?a teniendo dolor en los senos nasales, puede realizar un seguimiento con ellos. Llama para concertar tanner constanza. Cirujanos otorrinolaring?logos del oeste de [place] [address], [address] [place], [place], .. [phone] Prescriptions: No Action tramadol 50 mg tablet 50 mg PO Q6H PRN (Reason: pain) 3 Days Qty: 9 0RF cyclobenzaprine 5 mg tablet 5 mg PO Q8H PRN (Reason: pain (scale score 7-10)) 5 Days Qty: 14 0RF benzonatate 200 mg capsule 200 mg PO TID PRN (Reason: cough) Qty: 30 0RF doxycycline hyclate 100 mg tablet 100 mg PO BID Qty: 20 0RF amoxicillin-pot clavulanate [Augmentin] 875-125 mg tablet 1 tab PO BID Qty: 20 0RF doxycycline hyclate 100 mg tablet 100 mg PO BID 7 Days Qty: 14 0RF acetaminophen [Tylenol] 325 mg tablet 650 mg PO Q6H PRN (Reason: fever) Qty: 30 0RF amoxicillin-pot clavulanate 875-125 mg tablet 1 tab PO BID 10 Days Qty: 20 0RF Interventions: ED Discharge Assessment Last Done: 01/07/23 23:20 Discharge Date/Time: 01/07/23 23:21
[2023-01-07 13:01] LABS: MANUAL DIFF FLAG NO
[2023-01-07 13:04] LABS: Basophils Percent Auto 0.5 % (0-2); Eosinophils Absolute Auto 0.2 X10*3/uL (0.0-0.4); Eosinophils Percent Auto 3.5 % (0-4); Hematocrit 39.2 % (42.0-52.0); Hemoglobin 12.6 g/dl (14.0-18.0); Imm Gran Abs Auto 0.01 X10*3/uL (0.00-0.03); Imm Gran Pct Auto 0.2 % (0.0-0.4); Lymphocytes Absolute Auto 1.6 X10*3/uL (1.2-4.9); Lymphocytes Percent Auto 28.9 % (20-40); Mean Corpuscular HGB Conc 32.1 g/dl (31.0-36.0); Mean Corpuscular Hemoglobin 26.6 pg (27.0-33.0); Mean Corpuscular Volume 82.9 fL (80.0-98.0); Mean Platelet Volume 8.5 fL (9.4-12.4); Monocytes Absolute Auto 0.6 X10*3/uL (0.1-1.2); Neutrophils Absolute Auto 3.2 x10*3/uL (2.0-8.3); Neutrophils Percent Auto 56.9 % (45-73); Platelet Count 247 X10*3/uL (160-400); Red Blood Count 4.73 X10*6/uL (4.60-5.80); Red Cell Distribution Width 14.9 % (11.0-16.0); White Blood Count 5.7 X10*3/uL (4.8-10.8)
[2023-01-07 13:12] LABS: Prothrombin Time 12.4 SEC (11.1-13.3)
[2023-01-07 13:15] LABS: Partial Thromboplastin Time 32.9 SEC (26.0-36.4)
[2023-01-07 13:21] LABS: Alanine Aminotransferase 36 U/L (0-40); Albumin Level 4.3 g/dL (3.5-5.0); Alkaline Phosphatase 37 U/L (39-117); Anion Gap 17 (12-20); Aspartate Amino Transferase 26 U/L (5-37); Bilirubin Total 0.6 mg/dL (0.0-1.0); Blood Urea Nitrogen 11 mg/dL (9-16); Calcium 9.7 mg/dL (8.4-10.2); Carbon Dioxide 22 mmol/L (22-29); Chloride 101 mmol/L (96-108); Creatinine Clr Calc Pharmacy 68.4; Estimated Glomerular Filt Rate > 60; Glucose Random 147 mg/dL (60-115); Potassium 4.3 mmol/L (3.3-5.1); Sodium 136 mmol/L (135-145); Total Protein 7.9 g/dL (6.5-8.0)
[2023-01-07 13:26] LABS: Troponin-I High Sensitivity < 2.7 ng/L (<3.5-35.0)
[2023-01-07 16:05] LABS: Glucose, Whole Blood 144 mg/dL (60-115)
[2023-01-07] MEDS: 0.9 % Sodium Chloride 1,000 ML 999 ML IVCONT (19:40)
== END 2023-01-07 23:21 | disposition home or self-care (01) ==
PROVIDERS: Physician Assistant; Emergency Provider Internal Medicine; PCP Internal Medicine
DX: S09.93XA Unspecified injury of face, initial encounter (principal); R42 Dizziness and giddiness; I95.1 Orthostatic hypotension; R51.9 Headache, unspecified; M54.2 Cervicalgia; W01.10XA Fall on same level from slipping, tripping and stumbling with subsequent striking against unspecified object, initial encounter; Y93.9 Activity, unspecified; Y92.9 Unspecified place or not applicable; Y99.9 Unspecified external cause status; Z79.899 Other long term (current) drug therapy
CPT/HCPCS: 36415; 70450; 72125; 80053; 82947; 84484; 85025; 85610; 85730; 93005; 96360; 96361; 99284

== ENCOUNTER 2023-12-16 14:50 | Emergency (ER) | payer MEDICARE, SELFPAY ==
--- NOTE | ~2023-12-16 | XR_ITS ---
EXAMINATION: XR LUMBOSACRAL SPINE CLINICAL INFORMATION: Pain. Injury. COMPARISON: None available. TECHNIQUE: Three views of the lumbosacral spine. FINDINGS: Lumbar vertebrae have normal height and alignment. No fracture or bone destruction. There is degenerative lipping at the anterior endplates of the lumbar vertebrae and multilevel facet joint arthrosis most significant at the lumbosacral junction. No spondylolysis or spondylolisthesis. Sacroiliac joints are normal. Vascular wall calcifications of the aorta without evidence for aneurysm XR/XR lumbar spine 2-3V IMPRESSION: 1. No acute abnormality. 2. Degenerative spondylosis of lumbar spine. Electronically signed by: Fly Garrido MD 12/16/2023 04:53 PM EDT RP
--- NOTE | ~2023-12-16 | CT_ITS ---
EXAMINATION: CT ABDOMEN AND PELVIS WITHOUT CONTRAST CLINICAL INFORMATION: Flank pain COMPARISON: None available. TECHNIQUE: Multidetector volumetric imaging was performed from the superior aspect of the liver through the pubic symphysis. Sagittal and coronal reformatted images were obtained on the technologist's workstation. This CT examination was performed using dose optimization techniques as appropriate, variously including the following: *Automated exposure control *Adjustment of mA and/or kV according to patient size (this includes techniques or standardized protocols for targeted exams where dose is matched to indication/reason for exam; i.e. extremities or head) *Use of iterative reconstruction technique DLP: 508 mGy-cm FINDINGS: LUNG BASES: Unremarkable. ABDOMINAL AND PELVIC WALL: Ventral fat-containing umbilical hernia. Bilateral fat-containing inguinal hernias colonic diverticulosis, no findings diverticulitis. LIVER AND BILIARY TREE: Unremarkable. GALLBLADDER: Unremarkable. PANCREAS: Unremarkable. SPLEEN: Unremarkable. ADRENAL GLANDS: Unremarkable. KIDNEYS AND URETERS: No hydronephrosis or nephrolithiasis. GASTROINTESTINAL TRACT: Unremarkable. Appendix is within normal limits. VASCULAR: Aortic atherosclerotic calcifications, no aneurysmal dialation. LYMPH NODES/PERITONEUM: No lymphadenopathy. FREE FLUID: None. BLADDER: Unremarkable. PELVIC VISCERA: Marked prostatomegaly with the prostate measuring 5.6 x 5.8 cm with protrusion into the urinary bladder. OSSEOUS STRUCTURES: Degenerative changes of the spine. CT/CT abdomen pelvis wo IV con IMPRESSION: * No hydronephrosis or nephrolithiasis. * Marked prostatomegaly with the prostate measuring 5.6 x 5.8 cm with protrusion into the urinary bladder. Electronically signed by: Lucero Beckett MD 12/16/2023 07:49 PM EDT
[2023-12-16 15:21] VITALS: BP 119/71; PULSE 90; RESP 16; TEMP 36.4; O2SAT 100; BMI 29.2
--- NOTE | 2023-12-16 15:24 | ED.GENADULT ---
HPI - General Adult General Chief complaint: Back Pain/Injury Stated complaint: low back pain Time Seen by Provider: 12/16/23 18:03 Source: patient, family ( Daughter) and human resources project coordinator Mode of arrival: ambulatory Limitations: no limitations History of Present Illness ED Provider: DR. Handley HPI narrative: 72-year-old male came in for evaluation of left flank pain started 6 days ago after he was hanging drywall in the ceiling with his son had to carry the whole she by himself, declined any falling, or recent back injury, no dysuria, no frequency urination, hematuria. Related Data Previous Rx's ?Medication ?Instructions ?Recorded cyclobenzaprine 5 mg tablet 5 mg PO Q8H PRN pain (scale score 03/06/20 7-10) 5 days #14 tabs tramadol 50 mg tablet 50 mg PO Q6H PRN pain 3 days #9 03/06/20 tabs amoxicillin 875 mg-potassium 1 tab PO BID #20 tabs 03/25/21 clavulanate 125 mg tablet (Augmentin) benzonatate 200 mg capsule 200 mg PO TID PRN cough #30 caps 03/25/21 doxycycline hyclate 100 mg tablet 100 mg PO BID #20 tabs 03/25/21 acetaminophen 325 mg tablet 650 mg (2 x 325 mg) PO Q6H PRN 02/18/22 (Tylenol) fever #30 tabs doxycycline hyclate 100 mg tablet 100 mg PO BID 7 days #14 tabs 02/18/22 amoxicillin 875 mg-potassium 1 tab PO BID 10 days #20 tabs 11/20/22 clavulanate 125 mg tablet cyclobenzaprine 10 mg tablet 10 mg PO TID PRN muscle spasm #14 12/16/23 tabs ibuprofen 600 mg tablet 600 mg PO Q8H PRN pain #10 tabs 12/16/23 Allergies Allergy/AdvReac Type Severity Reaction Status Date / Time No Known Allergies Allergy Verified 12/16/23 15:26 [No Known Allergies*] Review of Systems Review of Systems: All other systems are reviewed and are negative Constitutional: Reports as per HPI and Reports no additional constitutional complaints Eyes: Reports as per HPI and Reports no additional eye complaints Reports system reviewed and no additional complaints, except as documented Cardiovascular: Reports as per HPI and Reports no additional cardiovascular complaints Respiratory: Reports as per HPI and Reports no additional respiratory complaints Gastrointestinal: Reports as per HPI and Reports no additional gastrointestinal complaints Genitourinary: Reports no additional female genitourinary complaints Musculoskeletal: Reports no additional musculoskeletal complaints Skin/Breast: Reports system reviewed and no additional complaints, except as docu Psychiatric: Reports no additional psychiatric complaints Endocrine: Reports no additional endocrine complaints Hematologic/Lymphatic: Reports no additional hematologic/lymphatic complaints Allergic/Immunologic: Reports no additional allergic/immunologic complaints Reports system reviewed and no additional complaints, except as documented and Reports Abnormal speech present [facility] Past Medical History Medical History Skin cancer HLD (hyperlipidemia) HTN (hypertension) Diabetes Social History Social History Advance Directives: No Advance Directives Information Provided: No Physical Exam ED Vital Signs: Vital Signs - 24 hr 12/16/23 15:21 12/16/23 18:28 Temperature 97.6 F Pulse Rate 90 101 H Respiratory Rate 16 16 Blood Pressure 119/71 114/67 Pulse Oximetry 100 97 Oxygen Delivery Method Room Air Room Air BMI result Body Mass Index 29.2 Vital signs have been reviewed and appear to be correct. Blood pressure elevated. Heart rate normal. Respiratory rate normal. Temperature normal. Oxygen saturation normal. Appearance: Alert. Oriented X3. No acute distress. Head: Normal external exam. Normocephalic. Atraumatic. No [place] signs noted. No raccoon eyes noted Eyes: PERRLA. EOMI. Conjunctiva and sclera normal. Eyelids normal. ENT: TM's Normal. Pharynx normal. Uvula midline. Moist mucous membranes. No trismus noted. No drooling noted. No muffled voice noted. Neck: Normal inspection. Neck supple. FROM. No adenopathy. Thyroid Normal. No meningeal signs. No neck mass noted. CVS: Normal heart rate and rhythm. Heart sound normal. No murmurs noted. Pulses normal throughout. Respiratory: No respiratory distress. Painless inspiration. Breath sounds normal. No wheezes/rales/rhonchi noted. Chest nontender. No accessory muscle usage noted or decreased air movement noted. Abdomen: Soft and nontender. Bowel sounds normal in all 4 quadrants. No distention noted. No organomegaly noted. No visible injury noted. Back: Left CVA tenderness. Full range of motion noted. Skin: Skin warm and dry. Normal skin color. Normal skin turgor. No rashes/lesions/lacerations noted. Extremities: No lower extremity edema. Extremities exhibit normal range of motion. Extremities nontender. Neuro: Oriented X 3. Cranial nerve exam: II-XII are grossly intact No motor deficit. No sensory deficit. Reflexes normal. Course Course Course Narrative: RME performed by Camille Marie PA-C. Patient is a 72 year old assigned male at presenting to the emergency department with low back pain. Patient states he was recently in [place] and the pain started there. Patient states that the back pain has not gotten better and moving makes it worse. Detailed physical exam and review of systems are deferred to the starcher and tenter range feeder. Labs and imaging ordered. Patient placed back in the waiting room pending room availability and results. Reevaluation(s) Reevaluation #1: left flank pain x6 days after hanging she truck in sealing, no history of kidney stone, no blood in the urine, patient report burning sensation with urination but no frequency. No fever or chills. Time: 19:22 Medications Administered Discontinued Medications Generic Name Dose Route Start Last Admin Trade Name Freq PRN Reason Stop Dose Admin Cyclobenzaprine HCl 10 mg 12/16/23 19:36 12/16/23 19:53 Cyclobenzaprine Hcl 10 Mg Tablet PO 12/16/23 19:37 10 mg ONCE ONE Administration Ibuprofen 600 mg 12/16/23 19:36 12/16/23 19:52 Ibuprofen 600 Mg Tablet PO 12/16/23 19:37 600 mg ONCE ONE Administration Medical Decision Making Differential Diagnosis Differential Diagnoses: The differential diagnosis associated with the presentation includes ( Kidney stone, UTI, pyelonephritis, muscular pain, electrolyte derangement, severe anemia.) Admission/Observation Consideration of admission/observation: Escalation of care including admission/observation considered Lab Data MDM Lab Attestation statement: I reviewed the patient's lab results. 12/16/23 15:32 12/16/23 15:32 Labs: Lab Results 12/16/23 12/16/23 12/16/23 Range/Units 15:32 18:34 20:04 WBC 5.1 (4.8-10.8) X10*3/uL RBC 4.37 L (4.60-5.80) X10*6/uL Hgb 12.0 L (14.0-18.0) g/dl Hct 36.6 L (42.0-52.0) % MCV 83.8 (80.0-98.0) fL MCH 27.5 (27.0-33.0) pg MCHC 32.8 (31.0-36.0) g/dl RDW 14.1 (11.0-16.0) % Plt Count 236 (160-400) X10*3/uL MPV 9.1 L (9.4-12.4) fL Immature Gran % (Auto) 0.2 (0.0-0.4) % Neut % (Auto) 58.3 (45-73) % Lymph % (Auto) 31.9 (20-40) % Zavala % (Auto) 8.4 (2-11) % Eos % (Auto) 0.6 (0-4) % Baso % (Auto) 0.6 (0-2) % Lymph # (Auto) 1.6 (1.2-4.9) X10*3/uL Zavala # (Auto) 0.4 (0.1-1.2) X10*3/uL Eos # (Auto) 0.0 (0.0-0.4) X10*3/uL Baso # (Auto) 0.0 (0.0-0.2) X10*3/uL Abs Immat Gran (auto) 0.01 (0.00-0.03) X10*3/uL Absolute Neuts (auto) 3.0 (2.0-8.3) x10*3/uL Absolute Nucleated RBC 0.000 (0.0-0.012) X10*3/uL Nucleated RBC % (auto) 0.0 (0.0-0.2) /100WBC Sodium 139 (135-145) mmol/L Potassium 4.5 (3.3-5.1) mmol/L Chloride 105 (96-108) mmol/L Carbon Dioxide 25 (22-29) mmol/L Anion Gap 14 (12-20) BUN 26 H (9-16) mg/dL Creatinine 1.19 (0.5-1.4) mg/dL Estim Creat Clear Calc 53.4 Estimated GFR > 60 POC Glucose 166 H (60-115) mg/dL Random Glucose 99 (60-115) mg/dL Calcium 9.4 (8.4-10.2) mg/dL Magnesium 2.0 (1.6-2.6) mg/dL Total Bilirubin 0.8 (0.0-1.0) mg/dL AST 14 (5-37) U/L ALT 17 (0-40) U/L Alkaline Phosphatase 36 L (39-117) U/L Total Protein 7.9 (6.5-8.0) g/dL Albumin 4.5 (3.5-5.0) g/dL Urine Color Yellow Urine Appearance Clear Urine pH 5.5 (5.0-9.0) Ur Specific Felda 1.010 (1.005-1.025) Urine Protein Negative (Neg-Trace) mg/dL Urine Glucose (UA) >=1000 H (Negative) mg/dL Urine Ketones Negative (Negative) mg/dL Urine Blood Negative (Negative) Urine Nitrite Negative (Negative) Ur Leukocyte Esterase Negative (Negative) Urine RBC 0-2 (0-2) /HPF Urine WBC 0-5 (0-5) /HPF Ur Squamous Epith Cells 0-2 (0-2) /HPF Urine Bacteria None Seen (None Seen) Hyaline Casts 0-2 (0-2) /LPF Independent Interpretation I performed an independent interpretation of an: CT Scan ( Abdomen pelvis: No acute intra-abdominal pathology.) Radiology Impression Discussion of test interpretation with radiology: I have reviewed the radiologist's reading. Discharge Plan Discharge Clinical Impression: Strain of lumbar region Patient Disposition: Home, Self-Care Instructions: Muscle Strain (ED) Prescriptions: New cyclobenzaprine 10 mg tablet 10 mg PO TID PRN (Reason: muscle spasm) Qty: 14 0RF ibuprofen 600 mg tablet 600 mg PO Q8H PRN (Reason: pain) Qty: 10 0RF No Action tramadol 50 mg tablet 50 mg PO Q6H PRN (Reason: pain) 3 Days Qty: 9 0RF cyclobenzaprine 5 mg tablet 5 mg PO Q8H PRN (Reason: pain (scale score 7-10)) 5 Days Qty: 14 0RF benzonatate 200 mg capsule 200 mg PO TID PRN (Reason: cough) Qty: 30 0RF doxycycline hyclate 100 mg tablet 100 mg PO BID Qty: 20 0RF amoxicillin-pot clavulanate [Augmentin] 875-125 mg tablet 1 tab PO BID Qty: 20 0RF doxycycline hyclate 100 mg tablet 100 mg PO BID 7 Days Qty: 14 0RF acetaminophen [Tylenol] 325 mg tablet 650 mg PO Q6H PRN (Reason: fever) Qty: 30 0RF amoxicillin-pot clavulanate 875-125 mg tablet 1 tab PO BID 10 Days Qty: 20 0RF Referrals: Destinee Saenz MD [Primary Care Provider] - Print Language: Citizen Of [place]
[2023-12-16 15:37] LABS: MANUAL DIFF FLAG NO
[2023-12-16 15:39] LABS: Basophils Percent Auto 0.6 % (0-2); Eosinophils Percent Auto 0.6 % (0-4); Hematocrit 36.6 % (42.0-52.0); Imm Gran Abs Auto 0.01 X10*3/uL (0.00-0.03); Imm Gran Pct Auto 0.2 % (0.0-0.4); Lymphocytes Absolute Auto 1.6 X10*3/uL (1.2-4.9); Lymphocytes Percent Auto 31.9 % (20-40); Mean Corpuscular HGB Conc 32.8 g/dl (31.0-36.0); Mean Corpuscular Hemoglobin 27.5 pg (27.0-33.0); Mean Corpuscular Volume 83.8 fL (80.0-98.0); Mean Platelet Volume 9.1 fL (9.4-12.4); Monocytes Absolute Auto 0.4 X10*3/uL (0.1-1.2); Monocytes Percent Auto 8.4 % (2-11); Neutrophils Percent Auto 58.3 % (45-73); Platelet Count 236 X10*3/uL (160-400); Red Blood Count 4.37 X10*6/uL (4.60-5.80); Red Cell Distribution Width 14.1 % (11.0-16.0); White Blood Count 5.1 X10*3/uL (4.8-10.8)
[2023-12-16 15:54] LABS: Alanine Aminotransferase 17 U/L (0-40); Albumin Level 4.5 g/dL (3.5-5.0); Alkaline Phosphatase 36 U/L (39-117); Anion Gap 14 (12-20); Aspartate Amino Transferase 14 U/L (5-37); Bilirubin Total 0.8 mg/dL (0.0-1.0); Blood Urea Nitrogen 26 mg/dL (9-16); Calcium 9.4 mg/dL (8.4-10.2); Carbon Dioxide 25 mmol/L (22-29); Chloride 105 mmol/L (96-108); Creatinine Clr Calc Pharmacy 53.4; Estimated Glomerular Filt Rate > 60; Glucose Random 99 mg/dL (60-115); Potassium 4.5 mmol/L (3.3-5.1); Sodium 139 mmol/L (135-145); Total Protein 7.9 g/dL (6.5-8.0)
[2023-12-16 18:28] VITALS: BP 114/67; PULSE 101; RESP 16; O2SAT 97
[2023-12-16 18:44] LABS: Appearance Urine Clear; Color Urine Yellow; Glucose Urine UA >=1000 mg/dL (Negative); Leukocyte Esterase Urine Negative (Negative); Nitrite Urine Negative (Negative); PH 5.5 (5.0-9.0); UMIC TRIGGER UACC YES; Urine Blood Negative (Negative); Urine Ketones Negative (Negative); Urine Protein Negative (Neg-Trace)
[2023-12-16 18:58] LABS: Bacteria Urine None Seen (None Seen); Hyaline Casts Urine 0-2 /LPF (0-2); RBC Urine 0-2 /HPF (0-2); Squamous Epithelial Cell Urine 0-2 /HPF (0-2); WBC Urine 0-5 /HPF (0-5)
[2023-12-16] MEDS: Ibuprofen 600 MG TABLET PO (19:52)
[2023-12-16] MEDS: Cyclobenzaprine HCl 10 MG TABLET PO (19:53)
[2023-12-16 20:07] LABS: Glucose, Whole Blood 166 mg/dL (60-115)
[2023-12-16 21:11] VITALS: BP 114/67; PULSE 101; RESP 16; TEMP 36.1; O2SAT 97
[2023-12-16] MEDS: oxyCODONE HCl Immed Release 5 MG TABLET PO (21:16)
== END 2023-12-16 21:11 | disposition home or self-care (01) ==
PROVIDERS: Physician Assistant Medical; Emergency Provider Emergency Medicine; PCP Internal Medicine
DX: S39.012A Strain of muscle, fascia and tendon of lower back, initial encounter (principal); X50.0XXA Overexertion from strenuous movement or load, initial encounter; Y93.E9 Activity, other interior property and clothing maintenance; Y92.9 Unspecified place or not applicable; Y99.9 Unspecified external cause status; R10.9 Unspecified abdominal pain; I10 Essential (primary) hypertension; E11.9 Type 2 diabetes mellitus without complications; E78.5 Hyperlipidemia, unspecified; Z79.899 Other long term (current) drug therapy
CPT/HCPCS: 36415; 72100; 74176; 80053; 81001; 82947; 83735; 85025; 99283; 99284

== ENCOUNTER 2024-01-14 10:54 | Outpatient (REF) | payer MEDICARE, SELFPAY | END 2024-01-14 10:55 | disposition home or self-care (01) | LOC: HO.SH 10:54 | PROVIDERS: Visit Provider Internal Medicine | DX: Z01.118 Encounter for examination of ears and hearing with other abnormal findings (principal); H90.3 Sensorineural hearing loss, bilateral | CPT/HCPCS: 92557; 92567 ==

== ENCOUNTER 2024-02-07 17:29 | Emergency (ER) | payer SELFPAY ==
--- NOTE | ~2024-02-07 | CT_ITS ---
EXAMINATION: CT HEAD WITHOUT CONTRAST CT CERVICAL SPINE WITHOUT CONTRAST CLINICAL INFORMATION: [facility] COMPARISON: 01/07/2023 TECHNIQUE: A noncontrast CT of the head and a noncontrast CT of the cervical spine with sagittal and coronal reformats. This CT examination was performed using dose optimization techniques as appropriate, variously including the following: *Automated exposure control *Adjustment of mA and/or kV according to patient size (this includes techniques or standardized protocols for targeted exams where dose is matched to indication/reason for exam; i.e. extremities or head) *Use of iterative reconstruction technique DLP: 1080 mGy*cm FINDINGS: No intra-axial or extra-axial hemorrhage. No acute territorial infarct. Ventricles and sulci appear normal. Preservation of veronica-white matter differentiation. No mass, mass effect, or midline shift. No fracture. The mastoid air cells and visualized paranasal sinuses are clear. Normal alignment of the cervical spine. No fracture. No prevertebral soft tissue swelling. The C2-C3 facet joints are fused. Prominent degenerative change at the anterior atlantoaxial junction. CT/CT cervical spine wo IV con IMPRESSION: 1. No acute intracranial abnormality. 2. No cervical spine fracture or traumatic subluxation. Electronically signed by: Marcos Renteria MD 02/07/2024 08:35 PM [facility]
--- NOTE | ~2024-02-07 | XR_ITS ---
EXAMINATION: XR CHEST CLINICAL INFORMATION: Trauma. COMPARISON: Chest radiograph dated March 25, 2021. TECHNIQUE: Frontal view of the chest was obtained. FINDINGS: The heart is normal in size. The lungs are clear. No pleural effusion. No pneumothorax. No acute osseous abnormality. XR/XR chest 1V IMPRESSION: No acute cardiopulmonary disease. Electronically signed by: Jorge Luis Rocha DO 02/07/2024 10:39 PM [facility] [place]
--- NOTE | ~2024-02-07 | CT_ITS ---
EXAMINATION: CT HEAD WITHOUT CONTRAST CT CERVICAL SPINE WITHOUT CONTRAST CLINICAL INFORMATION: [facility] COMPARISON: 01/07/2023 TECHNIQUE: A noncontrast CT of the head and a noncontrast CT of the cervical spine with sagittal and coronal reformats. This CT examination was performed using dose optimization techniques as appropriate, variously including the following: *Automated exposure control *Adjustment of mA and/or kV according to patient size (this includes techniques or standardized protocols for targeted exams where dose is matched to indication/reason for exam; i.e. extremities or head) *Use of iterative reconstruction technique DLP: 1080 mGy*cm FINDINGS: No intra-axial or extra-axial hemorrhage. No acute territorial infarct. Ventricles and sulci appear normal. Preservation of veronica-white matter differentiation. No mass, mass effect, or midline shift. No fracture. The mastoid air cells and visualized paranasal sinuses are clear. Normal alignment of the cervical spine. No fracture. No prevertebral soft tissue swelling. The C2-C3 facet joints are fused. Prominent degenerative change at the anterior atlantoaxial junction. CT/CT head/brain wo IV con IMPRESSION: 1. No acute intracranial abnormality. 2. No cervical spine fracture or traumatic subluxation. Electronically signed by: Marcos Renteria MD 02/07/2024 08:35 PM [facility]
--- NOTE | ~2024-02-07 | XR_ITS ---
EXAMINATION: XR THORACIC SPINE CLINICAL INFORMATION: Trauma. COMPARISON: None available. TECHNIQUE: 4 views of the thoracic spine were obtained. FINDINGS: Thoracic spinal alignment is anatomic in the sagittal projection. The vertebral bodies demonstrate preserved stature. There is multilevel degenerative disc disease. No acute fracture. The visualized lungs are clear. XR/XR thoracic spine 2V IMPRESSION: No acute osseous thoracic spine abnormality. Electronically signed by: Jorge Luis Rocha DO 02/07/2024 10:41 PM [facility]
[2024-02-07 18:07] VITALS: BP 109/56; PULSE 120; RESP 16; TEMP 36.4; O2SAT 98; BMI 29.2
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
[2024-02-07 19:43] VITALS: BP 96/60; PULSE 114; RESP 16; TEMP 36.7; O2SAT 97
[2024-02-07 22:40] VITALS: BP 125/88; PULSE 118; RESP 16; TEMP 36.7; O2SAT 99
[2024-02-07 23:00] VITALS: BP 125/88; PULSE 118; RESP 16; TEMP 36.7; O2SAT 99
== END 2024-02-07 22:55 | disposition home or self-care (01) ==
PROVIDERS: Emergency Provider Internal Medicine; PCP Internal Medicine
DX: S16.1XXA Strain of muscle, fascia and tendon at neck level, initial encounter (principal); V43.52XA Car driver injured in collision with other type car in traffic accident, initial encounter; Y93.9 Activity, unspecified; Y92.410 Unspecified street and highway as the place of occurrence of the external cause; Y99.9 Unspecified external cause status; M54.2 Cervicalgia; I10 Essential (primary) hypertension; E78.5 Hyperlipidemia, unspecified; E11.9 Type 2 diabetes mellitus without complications
CPT/HCPCS: 70450; 71045; 72070; 72125; 99284